=== PATIENT | female | born 1975 | race Caucasian/White ===

== ENCOUNTER → 2017-10-25 | Outpatient (CLI) | payer BC ==
--- NOTE | 2017-10-25 16:51 | RADIOLOGY IMAGING REPORT ---
FACILITY: [facility] [place] PATIENT NAME: TERESA SIEGEL : [id number] MR: [id number] V: [id number] EXAM DATE: [id number] ORDERING PHYSICIAN: LYNETTE AGUAYO TECHNOLOGIST: Nhung De La O PROCEDURE:BILATERAL DIGITAL SCREENING MAMMOGRAM WITH CAD ASSISTED INTERPRETATION & 3D TOMOSYNTHESIS COMPARISON:None. INDICATIONS:Screening mammogram FINDINGS: Dense heterogeneous fibroglandular tissue is seen throughout the breasts. In the medial portion of the Right breast junction of the middle and posterior 1/3 there is an area of vague architectural distortion for which Spot compression view is recommended. There is no demonstration of focal mass or malignant appearing calcification of the Left breast. DIAGNOSTIC CATEGORY 0--INCOMPLETE: NEED ADDITIONAL IMAGING EVALUATION. RECOMMENDATIONS: ADDITIONAL MAMMOGRAPHIC VIEWS REQUIRED: RIGHT BREAST. IMPRESSION: BIRADS 0: Incomplete. Additional views of the Right breast recommended as described. Dictated by: Kimberly Benavides M.D. on 10/25/2017 at 15:56 Transcribed by: ERICK on 10/25/2017 at 16:07 Approved by: Kimberly Benavides M.D. on 10/25/2017 at 16:50 [facility]
== END ==
LOC: MAMO 02:37
PROVIDERS: ATTEND Obstetrics & Gynecology
DX: Z12.31 Encounter for screening mammogram for malignant neoplasm of breast (principal); R92.8 Other abnormal and inconclusive findings on diagnostic imaging of breast
CPT/HCPCS: 77063; 77067

== ENCOUNTER → 2017-11-06 | Outpatient (CLI) | payer BC ==
--- NOTE | 2017-11-07 17:28 | RADIOLOGY IMAGING REPORT ---
FACILITY: [facility] PATIENT NAME: TERESA SIEGEL : [id number] MR: [id number] V: [id number] EXAM DATE: ORDERING PHYSICIAN: LYNETTE AGUAYO TECHNOLOGIST: Latrice Yeboah RDMS PROCEDURE:US RIGHT BREAST COMPLETE COMPARISON:Today's Diagnostic Right Mammogram and Prior Bilateral Mammogram of 10/25/17. INDICATIONS:FURTHER EVAL FINDINGS: In the 12 o'clock position of the Right breast 2cmm from the nipple there is a 4mm cyst. In the 1 o'clock position of the Right breast 6cm from the nipple there is a well circumscribed hypoechoic nodule measuring 7.5mm in diameter with internal echo's and acoustic enhancement. This could represent a debris filled cyst or solid mass. In the 1 o'clock position Right breast 3cm from the nipple is a septated cyst measuring 1.1cm in diameter. In the 1 o'clock position of the Right breast 2cm from the nipple is a well circumscribed hypoechoic nodule measuring 5.2mm in diameter. Numerous small cysts are identified also in the 1 o'clock position of the Right breast 3cm from the nipple. In the 2 o'clock position of the Right breast 3cm from the nipple is a 6.2mm cyst. In the 2 o'clock position of the Right breast 2cm from the nipple is a 5.5mm cyst. 3 o'clock position of the Right breast 5cm from the nipple is a 7.6mm cyst. 3 o'clock position of the Right breast 4cm from the nipple is a septated cyst measuring 5.4mm in diameter. In the 4 o'clock position of the Right breast 5cm from the nipple is a small cluster of cysts. In the 6 o'clock position of the Right breast 2cm from the nipple is a hypoechoic nodule with internal echo's may represent a complex cyst verses solid mass although no acoustic shadowing is seen. In the 7 o'clock position of the Right breast 4cm from the nipple is a 4mm cyst. In the 8 o'clock position of the Right breast 6cm from the nipple is a mildly prominent duct measuring 2mm in diameter. In the 9 o'clock position of the Right breast 6cm from the nipple is a 4mm cyst. 10 o'clock position of the Right breast are mildly prominent ducts. In the Right axilla small fatty replaced lymph nodes are noted. DIAGNOSTIC CATEGORY 3--PROBABLY BENIGN FINDING. RECOMMENDATIONS: SIX MONTH FOLLOW-UP ULTRASOUND: RIGHT BREAST. ULTRASOUND: RIGHT BREAST. SIX MONTH FOLLOW-UP DIAGNOSTIC MAMMOGRAM: RIGHT BREAST. IMPRESSION: BIRADS 3: Probable benign finding. There are numerous cyst and some well circumscribed hypoechoic nodules scattered throughout the Right breast. A 6 month follow-up Right breast Ultrasound is recommended in addition to a 6 month follow-up diagnostic Right mammogram to document stability of the parenchymal pattern sense there are no mammograms early than 10/25/17 available. Dictated by: Kimberly Benavides M.D. on 11/06/2017 at 18:09 Transcribed by: ERICK on 11/07/2017 at 11:40 Approved by: Kimberly Benavides M.D. on 11/07/2017 at 17:28 [facility]
--- NOTE | 2017-11-07 17:28 | RADIOLOGY IMAGING REPORT ---
FACILITY: [facility] PATIENT NAME: TERESA SIEGEL : [id number] MR: [id number] V: [id number] EXAM DATE: [id number] ORDERING PHYSICIAN: LYNETTE AGUAYO TECHNOLOGIST: Nhung De La O PROCEDURE:RIGHT DIGITAL DIAGNOSTIC MAMMOGRAM WITH CAD ASSISTED INTERPRETATION & 3D TOMOSYNTHESIS COMPARISON:Prior mammogram 10/25/17. INDICATIONS:Further evaluation FINDINGS: The patient returned for Spot compression view of the Right CC projection which was performed with 3D Tomosynthesis. Medial and lateral rolled Right CC views were also submitted. The focal area of increased density in the medial portion of the Right breast seen on the recent Right CC view appeared partially compressible. Today's Right breast Ultrasound demonstrated numerous cysts and some well circumscribe hypoechoic nodules without shadowing. A 6 month follow-up Right breast mammogram and Right breast Ultrasound is recommended. DIAGNOSTIC CATEGORY 3--PROBABLY BENIGN FINDING. RECOMMENDATIONS: SIX MONTH FOLLOW-UP DIAGNOSTIC MAMMOGRAM: RIGHT BREAST. SIX MONTH FOLLOW-UP ULTRASOUND: RIGHT BREAST. IMPRESSION: BIRADS 3: Probably benign finding. A 6 month follow-up Right mammogram and Right breast Ultrasound is recommended. Dictated by: Kimberly Benavides M.D. on 11/06/2017 at 18:10 Transcribed by: ERICK on 11/07/2017 at 11:13 Approved by: Kimberly Benavides M.D. on 11/07/2017 at 17:27 [facility]
== END ==
LOC: MAMO 01:47
PROVIDERS: ATTEND Obstetrics & Gynecology
DX: N60.19 Diffuse cystic mastopathy of unspecified breast (principal); N63.10 Unspecified lump in the right breast, unspecified quadrant
CPT/HCPCS: 77061; 77065

== ENCOUNTER → 2018-05-25 | Outpatient (CLI) | payer BC ==
--- NOTE | 2018-05-28 18:05 | RADIOLOGY IMAGING REPORT ---
FACILITY: [facility] PATIENT NAME: TERESA SIEGEL : [id number] MR: [id number] V: [id number] EXAM DATE: [id number] ORDERING PHYSICIAN: LYNETTE AGUAYO TECHNOLOGIST: Darwin Shane RDMS, [facility] PROCEDURE:US RIGHT BREAST COMPLETE COMPARISON:Prior Right breast Ultrasound 11/06/17. INDICATIONS:6 month follow up FINDINGS: Numerous cysts are identified throughout the Right breast the largest is a cluster of cysts measuring 1.4cm in diameter in the 12:30 position 2cm from the nipple. No solid appearing masses are identified in the Right breast therefore the hypoechoic masses seen on the prior Ultrasound may have represented debris filled cysts. Incidentally noted are fatty replaced lymph nodes in the Right axillary region. DIAGNOSTIC CATEGORY 3--PROBABLY BENIGN FINDING. RECOMMENDATIONS: SIX MONTH FOLLOW-UP SCREENING MAMMOGRAM: BILATERAL BREASTS. IMPRESSION: BIRADS 3: Probably benign finding. There are multiple cysts seen throughout the Right breast although no solid lesions are seen. The patient will be due for her bilateral annual screening mammogram in 6 months. Dictated by: Kimberly Benavides M.D. on 05/25/2018 at 15:41 Transcribed by: ERICK on 05/26/2018 at 12:48 Approved by: Kimberly Benavides M.D. on 05/28/2018 at 18:04 [facility]
--- NOTE | 2018-05-28 18:05 | RADIOLOGY IMAGING REPORT ---
FACILITY: [facility] PATIENT NAME: TERESA SIEGEL : [id number] MR: [id number] V: [id number] EXAM DATE: [id number] ORDERING PHYSICIAN: LYNETTE AGUAYO TECHNOLOGIST: Nhung De La O PROCEDURE:RIGHT DIGITAL DIAGNOSTIC MAMMOGRAM WITH CAD ASSISTED INTERPRETATION & 3D TOMOSYNTHESIS COMPARISON:Prior mammograms 11/06/17, 10/25/17. INDICATIONS:six month follow up FINDINGS: The Right breast is heterogeneously dense which can obscure small masses. The parenchymal pattern has remained stable allowing for difference in mammographic technique & patient positioning. Spot compression view of the focal asymmetry in the medial portion of the Right breast on the Right CC view appears more compressible than on the prior studies. Today's Right breast Ultrasound demonstrated numerous cysts however no solid lesions. DIAGNOSTIC CATEGORY 3--PROBABLY BENIGN FINDING. RECOMMENDATIONS: SIX MONTH FOLLOW-UP SCREENING MAMMOGRAM: BILATERAL BREASTS. IMPRESSION: BIRADS 3: Probably benign finding. Right mammogram appears stable. The patient will be due for her bilateral annual screening mammogram in 6 months. Dictated by: Kimberly Benavides M.D. on 05/25/2018 at 15:39 Transcribed by: ERICK on 05/26/2018 at 12:42 Approved by: Kimberly Benavides M.D. on 05/28/2018 at 18:04 [facility]
== END ==
LOC: MAMO 02:58
PROVIDERS: ATTEND Obstetrics & Gynecology
DX: N60.01 Solitary cyst of right breast (principal)
CPT/HCPCS: 77061; 77065